=== PATIENT | male | born 1965 | race Caucasian/White ===

== ENCOUNTER 2018-06-15 12:45 | Inpatient (IN) | payer OTHER ==
[~2018-06-15] VITALS: Ht 180.3 cm; Wt 87.0 kg
[2018-06-15] MEDS ORDERED: SODIUM CHLORIDE 0.9% 1,000ML IVBOLUS ONE (14:00)
[2018-06-15] MEDS ORDERED: SODIUM CHLORIDE FLUSH 10ML SYR IVF ONE (14:00)
[2018-06-15] MEDS ORDERED: FAMOTIDINE 20 MG/2 ML IVP ONE (14:00)
[2018-06-15] MEDS ORDERED: ONDANSETRON 2MG/ML, 2ML IVPush ONE (14:00)
[2018-06-15] MEDS ORDERED: FAMOTIDINE 20 MG/2 ML ONE (14:24)
[2018-06-15] MEDS ORDERED: ONDANSETRON 2MG/ML, 2ML ONE (14:24)
[2018-06-15 14:53] LABS: BASOPHILS # (AUTO) 0.02 x10^3/uL (0-0.1); BASOPHILS % (AUTO) 0 % (0-1); EOSINOPHILS # (AUTO) 0.08 x10^3/uL (0-0.4); EOSINOPHILS % (AUTO) 1 % (1-7); LYMPHOCYTES % (AUTO) 13 % (22-44); MD NO; MEAN CORPUSCULAR HEMOGLOBIN 30.2 pg (27.5-34.5); MEAN CORPUSCULAR HGB CONC 34.9 g/dL (33.2-36.2); MEAN CORPUSCULAR VOLUME 86.5 fL (81-97); MEAN PLATELET VOLUME 7.4 fL (7.4-10.4); MONOCYTES # (AUTO) 0.62 x10^3/uL (0.2-0.8); MONOCYTES % (AUTO) 8 % (2-9); NEUTROPHILS % (AUTO) 77 % (42-75); PLATELET COUNT 412 x10^3/uL (130-400); RED CELL DISTRIBUTION WIDTH 13.1 % (9.4-14.8)
[2018-06-15 15:05] LABS: ALANINE AMINOTRANSFERASE 14 U/L (12-78); ALBUMIN 3.3 g/dL (3.4-5.0); ANION GAP 21 mmol/L (5-15); CALCIUM 8.2 mg/dL (8.5-10.1); CHLORIDE 95 mmol/L (98-107); CREATININE 7.19 mg/dL (0.7-1.3)
[2018-06-15 15:07] LABS: ALKALINE PHOSPHATASE 99 U/L (45-117); BILIRUBIN,TOTAL 0.3 mg/dL (0.2-1.0); TOTAL PROTEIN 7.4 g/dL (6.4-8.2)
[2018-06-15 15:31] LABS: ACETONE, SERUM Trace (10mg/dL) mg/dL (Negative)
[2018-06-15] MEDS ORDERED: SODIUM CHLORIDE 0.9% 1,000 ML IV ONE (15:48)
[2018-06-15] MEDS ORDERED: LISI-170 PO (15:49)
[2018-06-15] MEDS ORDERED: METF500T17 PO (15:49)
[2018-06-15] MEDS ORDERED: GLIM2TAB2 PO (15:49)
[2018-06-15] MEDS ORDERED: ATOR40TA78 PO (15:49)
[2018-06-15] MEDS ORDERED: BISACODYL 10 MG SUPP PR PRN (16:30)
[2018-06-15] MEDS ORDERED: DEXTROSE 50%, 50ML SYRINGE IVPush PRN (16:30)
[2018-06-15] MEDS ORDERED: DEXTROSE 4 GM TAB.CHEW PO PRN (16:30)
[2018-06-15] MEDS ORDERED: ONDANSETRON ODT 4 MG PO PRN (16:30)
[2018-06-15] MEDS ORDERED: GLUCAGON 1 MG IM PRN (16:30)
[2018-06-15] MEDS ORDERED: ONDANSETRON 2MG/ML, 2ML IVPush PRN (16:30)
[2018-06-15] MEDS: SODIUM CHLORIDE 0.9% 1,000 ML IV SCH (18:16)
[2018-06-15 18:33] VITALS: BP 98/56
[2018-06-15] MEDS: SODIUM CHLORIDE FLUSH 10ML SYR IVF SCH (19:56)
[2018-06-15] MEDS: INSULIN LISPRO 100 UNITS/ML, PEN SQ-INSULIN SCH (19:57)
[2018-06-15 20:15] VITALS: BP 99/64
[2018-06-15] MEDS ORDERED: ADAL40KI SQ (20:30)
[2018-06-15] MEDS ORDERED: DULA0.75 SQ (20:30)
[2018-06-15] MEDS ORDERED: TYLENOL PO (20:49)
[2018-06-15 21:58] VITALS: BP 100/59
[2018-06-15] MEDS ORDERED: DIPHENHYDRAMINE 12.5MG/5ML, 10ML UDC PO ONE (22:30)
[2018-06-16 01:05] VITALS: BP 101/60
[2018-06-16] MEDS: SODIUM CHLORIDE 0.9% 1,000 ML IV SCH ×3 (01:09→20:06)
[2018-06-16 04:25] LABS: CULTURE INDICATED? NO; MICROSCOPIC NOT IND
[2018-06-16 05:15] LABS: BASOPHILS # (AUTO) 0.03 x10^3/uL (0-0.1); BASOPHILS % (AUTO) 1 % (0-1); EOSINOPHILS # (AUTO) 0.21 x10^3/uL (0-0.4); EOSINOPHILS % (AUTO) 3 % (1-7); LYMPHOCYTES # (AUTO) 0.98 x10^3/uL (1-3.4); LYMPHOCYTES % (AUTO) 16 % (22-44); MD NO; MEAN CORPUSCULAR HEMOGLOBIN 29.5 pg (27.5-34.5); MEAN CORPUSCULAR HGB CONC 34.2 g/dL (33.2-36.2); MEAN CORPUSCULAR VOLUME 86.2 fL (81-97); MEAN PLATELET VOLUME 7.4 fL (7.4-10.4); MONOCYTES # (AUTO) 0.79 x10^3/uL (0.2-0.8); MONOCYTES % (AUTO) 13 % (2-9); NEUTROPHILS % (AUTO) 68 % (42-75); PLATELET COUNT 325 x10^3/uL (130-400); RED BLOOD COUNT 4.49 x10^6/uL (4.38-5.82); RED CELL DISTRIBUTION WIDTH 12.5 % (9.4-14.8)
[2018-06-16 05:20] LABS: ALBUMIN 2.6 g/dL (3.4-5.0); ANION GAP 15 mmol/L (5-15); CALCIUM 7.2 mg/dL (8.5-10.1); CHLORIDE 103 mmol/L (98-107)
[2018-06-16 05:23] LABS: ALANINE AMINOTRANSFERASE 13 U/L (12-78); ALKALINE PHOSPHATASE 76 U/L (45-117); BILIRUBIN,TOTAL 0.2 mg/dL (0.2-1.0); CREATININE 6.01 mg/dL (0.7-1.3); TOTAL PROTEIN 5.8 g/dL (6.4-8.2)
[2018-06-16] MEDS: INSULIN LISPRO 100 UNITS/ML, PEN SQ-INSULIN SCH ×4 (07:00→20:00)
[2018-06-16 08:25] VITALS: BP 98/62
[2018-06-16] MEDS: POLYETHYLENE GLYCOL 17 GM PACKET PO SCH (09:00)
[2018-06-16] MEDS: SODIUM CHLORIDE FLUSH 10ML SYR IVF SCH ×2 (09:00→20:07)
[2018-06-16 12:07] VITALS: BP 99/58
[2018-06-16 21:07] VITALS: BP 106/58
[2018-06-16] MEDS: ACETAMINOPHEN 325 MG TABLET PO PRN (21:52)
[2018-06-17] MEDS: SODIUM CHLORIDE 0.9% 1,000 ML IV SCH ×2 (01:25→06:27)
[2018-06-17 02:55] VITALS: BP 101/63
[2018-06-17 05:26] LABS: ALANINE AMINOTRANSFERASE 14 U/L (12-78); ALBUMIN 2.9 g/dL (3.4-5.0); ANION GAP 10 mmol/L (5-15); CALCIUM 7.8 mg/dL (8.5-10.1); CHLORIDE 114 mmol/L (98-107); CREATININE 3.16 mg/dL (0.7-1.3)
[2018-06-17 05:28] LABS: ALKALINE PHOSPHATASE 75 U/L (45-117); BILIRUBIN,TOTAL 0.2 mg/dL (0.2-1.0); TOTAL PROTEIN 6.2 g/dL (6.4-8.2)
[2018-06-17 07:30] VITALS: BP 102/65
[2018-06-17] MEDS: INSULIN LISPRO 100 UNITS/ML, PEN SQ-INSULIN SCH ×4 (08:08→22:42)
[2018-06-17] MEDS: SODIUM BICARBONATE 8.4% 100 MEQ in DEXTROSE 5% 1,000 ML IV SCH ×2 (09:05→18:43)
[2018-06-17] MEDS: SODIUM CHLORIDE FLUSH 10ML SYR IVF SCH ×2 (09:05→22:42)
[2018-06-17] MEDS: POLYETHYLENE GLYCOL 17 GM PACKET PO SCH (09:05)
[2018-06-17 13:09] VITALS: BP 110/67
[2018-06-17 19:56] VITALS: BP 112/67
[2018-06-17] MEDS: ACETAMINOPHEN 325 MG TABLET PO PRN (22:42)
[2018-06-18 02:57] VITALS: BP 95/59
[2018-06-18] MEDS: SODIUM BICARBONATE 8.4% 100 MEQ in DEXTROSE 5% 1,000 ML IV SCH ×2 (03:21→10:35)
[2018-06-18 07:45] VITALS: BP 114/74
[2018-06-18] MEDS: POLYETHYLENE GLYCOL 17 GM PACKET PO SCH (08:36)
[2018-06-18] MEDS: INSULIN LISPRO 100 UNITS/ML, PEN SQ-INSULIN SCH ×2 (09:00→11:12)
[2018-06-18] MEDS: SODIUM CHLORIDE FLUSH 10ML SYR IVF SCH (09:01)
[2018-06-18 09:58] LABS: ALANINE AMINOTRANSFERASE 16 U/L (12-78); ALBUMIN 3.1 g/dL (3.4-5.0); ANION GAP 8 mmol/L (5-15); CHLORIDE 106 mmol/L (98-107); CREATININE 2.11 mg/dL (0.7-1.3)
[2018-06-18 10:00] LABS: ALKALINE PHOSPHATASE 76 U/L (45-117); BILIRUBIN,TOTAL 0.3 mg/dL (0.2-1.0); TOTAL PROTEIN 6.6 g/dL (6.4-8.2)
[2018-06-18] MEDS ORDERED: MAGNESIUM OXIDE 400 MG TABLET PO SCH (10:30)
== END 2018-06-18 12:30 | disposition home or self-care (01) | DRG 683 ==
LOC: ED 15:50 → EDIP 15:56 → ED 15:59 → 4EST 17:48 → DCLOUNGE 06-18 12:14
PROVIDERS: ADMIT Hospitalist; ATTEND Hospitalist
DX: N17.0 Acute kidney failure with tubular necrosis (principal); K50.90 Crohn's disease, unspecified, without complications; E87.1 Hypo-osmolality and hyponatremia; E87.2 Acidosis; E78.5 Hyperlipidemia, unspecified; I10 Essential (primary) hypertension; E66.9 Obesity, unspecified; E11.65 Type 2 diabetes mellitus with hyperglycemia; E86.0 Dehydration; Z90.49 Acquired absence of other specified parts of digestive tract; Z68.26 Body mass index [BMI] 26.0-26.9, adult; Z79.899 Other long term (current) drug therapy
CPT/HCPCS: 36415; 74022; 99285; J3490; 76770; 80053; 81003; 82010; 82800; 82962; 83690; 83735; 84100; 84550; 85025; 93005; 96361; 96374; 96375; G0378; J2405; J7070; J1815; J7030